=== PATIENT | female | born 1955 | race Caucasian/White ===

== ENCOUNTER → 2021-06-29 | Outpatient (CLI) | payer MEDICARE ==
--- NOTE | 2021-06-30 14:11 | REP ---
INDICATION: THYROTOXICOSIS. COMPARISON: None. TECHNIQUE/RADIOTRACER AND DOSE: Following the oral administration of 377.0 uCi iodine 123 as sodium iodine, 24 hour uptake is performed as well as thyroid scan. FINDINGS: The 24 hour uptake is 76.95%. This is well above the normal range of 25-35%. The right lobe of the thyroid is larger than the left. There is diffuse increased uptake throughout both lobes. No focal hot or cold nodule is seen. IMPRESSION: Increased 24 hour uptake of 76.95%. Diffuse increased uptake throughout both lobes of the thyroid with no focal hot or cold nodule. <Electronically signed by Danilo Lamas > 06/30/21 [id number]
== END ==
LOC: M RAD 12:53
PROVIDERS: ATTEND Internal Medicine Endocrinology, Diabetes & Metabolism
DX: E05.00 Thyrotoxicosis with diffuse goiter without thyrotoxic crisis or storm (principal)
CPT/HCPCS: 78012; A9516

== ENCOUNTER → 2021-08-12 | Outpatient (CLI) | payer MEDICARE | LOC: M RAD 11:25 | PROVIDERS: ATTEND Internal Medicine Endocrinology, Diabetes & Metabolism | DX: E05.00 Thyrotoxicosis with diffuse goiter without thyrotoxic crisis or storm (principal) | CPT/HCPCS: 79005; A9517 ==